=== PATIENT | female | born 1945 | race African-American/Black ===

== ENCOUNTER 2019-09-26 05:15 | Observation (INO) | payer MEDICARE ==
--- NOTE | 2019-09-22 14:16 | Diagnostic Imaging Report ---
EXAMINATION: CHEST 2 VIEWS INDICATION: Pre-operative COMPARISON: None FINDINGS: LINES/TUBES:None LUNGS:The lungs are well-inflated. No focal consolidation or pulmonary edema. PLEURA:No pleural effusion or pneumothorax. MEDIASTINUM:The cardiomediastinal silhouette appears normal in size and shape. Atherosclerotic calcifications of the thoracic aorta. BONES/SOFT TISSUES:No acute osseous injury. ABDOMEN:No free air under the diaphragm. IMPRESSION: No focal pneumonia or pulmonary edema. Signed by: Emmanuel Bernal MD on 09/22/2019 2:13 PM
[~2019-09-26] VITALS: Ht 172.7 cm; Wt 93.4 kg
[~2019-09-26 05:15] MED LIST: ADVIL200 MG PO; LASIX20 MG PO; LEVOTHYROXINE88 MCG PO; POTASSIUM CHLO10 ME1 PO
--- OUTSIDE RECORDS SUMMARY | 2019-09-26 05:22 | XMS REPORT ---
Author Author [facility] Address Unknown Phone Unavailable Care Team Providers Care Construction Controller Name Role Phone FAN OCAMPO Unavailable Unavailable Problems This patient has no known problems. Allergies, Adverse Reactions, Alerts This patient has no known allergies or adverse reactions. Medications This patient has no known medications. Results Test Description Test Time Test Comments Text Results Atomic Results Result Comments CHEST 2 VIEWS 2019-09-22 14:11:00 [facility] [address] [address] Patient Name: ALISON VILLAR MR #: [id number] : 1945 Age/Sex: 73/F Req #: [id number] Adm Physician: Ordered by: FAN OCAMPO MD Report #: [id number] Location: OR Room/Bed: Procedure: [id number] DX/CHEST 2 VIEWS Exam Date: 09/22/19 Exam Time: 1400 REPORT STATUS: Signed EXAMINATION: CHEST 2 VIEWS INDICATION: Pre-operative COMPARISON: None FINDINGS: LINES/TUBES:None LUNGS:The lungs are well-inflated. No focal consolidation or pulmonary edema. PLEURA:No pleural effusion or pneumothorax. MEDIASTINUM:The cardiomediastinal silhouette appears normal in size and shape. Atherosclerotic calcifications of the thoracic aorta. BONES/SOFT TISSUES:No acute osseous injury. ABDOMEN:No free air under the diaphragm. IMPRESSION: No focal pneumonia or pulmonary edema. Signed by: Melvin Bernal MD on 09/22/2019 2:13 PM Dictated By: MELVIN BERNAL MD [id number] Transcribed By: CHAY on 09/22/19 1413 COPY TO: FAN OCAMPO MD
[2019-09-26] MEDS ORDERED: VANCOMYCIN 1GM/NS 250 ML 250 ML ONE (05:39)
[2019-09-26] MEDS ORDERED: DEXAMETHASONE SOD PHOS 10 MG/1 ML VIAL ONE (05:39)
[2019-09-26] MEDS ORDERED: CELECOXIB 200 MG CAP ONE (05:39)
[2019-09-26] MEDS ORDERED: GABAPENTIN 300 MG CAP ONE (05:39)
[2019-09-26] MEDS ORDERED: SODIUM CHLORIDE 0.9% 500ML 500 ML ONE (06:14)
[2019-09-26] MEDS ORDERED: VANCOMYCIN HCL 1,000 MG ONE (06:14)
[2019-09-26] MEDS ORDERED: BACITRACIN 50,000 UNIT VIAL ONE (06:15)
[2019-09-26] MEDS ORDERED: TRANEXAMIC ACID 1,000 MG/10 ML ML ONE (06:15)
[2019-09-26] MEDS ORDERED: ROPIVACAINE 246.25 MG, EPINEPHRINE HCL 1:1000 1ML 0.5 MG, CLONIDINE HCL 0.08 MG, KETORO... INJ ONE ×5 (07:30)
[2019-09-26] MEDS ORDERED: HYDROCODONE/APAP 5MG-325MG TAB PO PRN (08:15)
[2019-09-26] MEDS ORDERED: DIPHENHYDRAMINE HCL INJ 50 MG/ML VIAL IM/IV PRN (08:15)
[2019-09-26] MEDS ORDERED: DOCUSATE SODIUM 100 MG CAP PO PRN (08:15)
[2019-09-26] MEDS ORDERED: ACETAMINOPHEN 650 MG SUPP PR PRN (08:15)
[2019-09-26] MEDS ORDERED: PROMETHAZINE HCL (IM) 25 MG/ML VIAL IM PRN (08:15)
[2019-09-26] MEDS ORDERED: KETOROLAC TROMETHAMINE 30 MG/ML VIAL IV PRN (08:15)
[2019-09-26] MEDS ORDERED: ONDANSETRON HCL INJ 2MG/ML 2ML 2 MG/ML VIAL IV PRN (08:15)
[2019-09-26] MEDS: ASPIRIN 325 MG TAB PO SCH ×2 (09:00→17:38)
[2019-09-26] MEDS ORDERED: CELECOXIB 100 MG CAP PO SCH (09:00)
--- NOTE | 2019-09-26 09:12 | Diagnostic Imaging Report ---
EXAMINATION: KNEE LEFT 1-2 VIEWS INDICATION: Postoperative COMPARISON: None FINDINGS: Portable AP and lateral radiographs of the left knee demonstrate immediate postoperative findings of left total knee replacement. Alignment is anatomic. No unexpected fracture. Postoperative subcutaneous soft tissue emphysema. Surgical skin radha in place. Small joint effusion. IMPRESSION: Anatomic alignment status post left total knee replacement. Signed by: Emmanuel Bernal MD on 09/26/2019 9:09 AM
[2019-09-26] MEDS ORDERED: MIDAZOLAM HCL 2 MG/2 ML VIAL ONE (09:18)
[2019-09-26] MEDS ORDERED: FENTANYL CITRATE/PF 100MCG/2 ML INJ ONE (09:18)
[2019-09-26] MEDS ORDERED: HYDROMORPHONE 1MG/1ML INJ ONE (09:53)
[2019-09-26] MEDS ORDERED: KETOROLAC TROMETHAMINE 30 MG/ML VIAL ONE (10:18)
--- NOTE | 2019-09-26 13:09 | NUR ---
REPORT RECEIVED FROM ADITI IN PACU AWAITING FOR PT TO ARRIVE TO FLOOR
[2019-09-26 13:20] VITALS: BP 124/68
--- NOTE | 2019-09-26 13:20 | NUR ---
RECEIVED PT TO FLOOR [id number] PT HAD LEFT TOTAL KNEE . LEFT LEG COVERED WITH YAMILETH. BELOW YAMILETH , ADITI RN REPORTED DRESSING TO LEFT KNEE AND LEFT FOOT DRESSING (STITCHES IN PLACE FROM CUT ) YAMILETH IS DRY AND INTACT FOOT PUMPS PRESENT RIGHT COMPRESSION STOCKINGS PRESENT IV TO THE RIGHT HAND 20 PATENT DRY AND INTACT FAMILY IS AT BEDSIDE WILL CONTINUE TO MONITOR PT CLOSELY, SIDE RAILSX2, BED WHEELS LOCKED CALL LIGHT IS WITHIN EASY REACH, INSTRUCTED TO CALL FOR ASSISTANCE IF NEEDED
--- NOTE | 2019-09-26 13:25 | NUR ---
PT VOIDED INTO BEDPAN
[2019-09-26] MEDS: ACETAMINOPHEN 1000 MG/100 ML IV SCH ×2 (13:51→19:30)
[2019-09-26] MEDS ORDERED: ROPIVACAINE 0.5% 5 MG/ML 30 ML SDV ONE (13:51)
[2019-09-26] MEDS: SODIUM CHLORIDE 0.9% 1000ML 1,000 ML IV SCH ×2 (13:51→18:05)
[2019-09-26] MEDS: HYDROCODONE/APAP 7.5MG-325MG 1 EA TAB PO PRN (14:55)
[2019-09-26 16:37] VITALS: BP 106/65
[2019-09-26] MEDS: VANCOMYCIN 1GM/NS 250 ML 250 ML IV SCH (17:38)
[2019-09-26] MEDS: CELECOXIB 200 MG CAP PO SCH (17:38)
[2019-09-26] MEDS ORDERED: PROPOFOL IV EMULSION 10 MG/ML 20 ML VIAL ONE (18:35)
[2019-09-26] MEDS ORDERED: ONDANSETRON HCL INJ 2MG/ML 2ML 2 MG/ML VIAL ONE (18:35)
[2019-09-26] MEDS ORDERED: SEVOFLURANE INHAL SOLN 250 ML PEN BTL ONE (18:35)
[2019-09-26] MEDS ORDERED: ACETAMINOPHEN 1000 MG/100 ML IV ONE (18:35)
[2019-09-26] MEDS ORDERED: PHENYLEPHRINE HCL 1% 10 MG/ML VIAL ONE (18:35)
[2019-09-26] MEDS ORDERED: LIDOCAINE HCL 2% LOCAL INJ 5 ML SDV VIAL INJ ONE (18:35)
--- NOTE | 2019-09-26 19:05 | NUR ---
Received patient awake on bed, no complaints at this time, CPM machine on,attached to patient, no complaints of pain at this time. Call light within easy reach, advised to call for assistance anytime, will continue to monitor closely
[2019-09-26 20:01] VITALS: BP 98/54
[2019-09-26 21:00] VITALS: BP 98/54
[2019-09-26] MEDS ORDERED: ZOLPIDEM TARTRATE 5 MG TAB PO PRN (21:00)
[2019-09-27] MEDS: ACETAMINOPHEN 1000 MG/100 ML IV SCH ×2 (00:20→06:20)
[2019-09-27 00:29] VITALS: BP 101/59
[2019-09-27] MEDS: SODIUM CHLORIDE 0.9% 1000ML 1,000 ML IV SCH (04:05)
[2019-09-27 04:39] VITALS: BP 106/57
[2019-09-27 06:45] LABS: HEMATOCRIT 34.6 % (34.2-44.1); HEMOGLOBIN 10.6 g/dL (12.0-16.0)
[2019-09-27] MEDS: VANCOMYCIN 1GM/NS 250 ML 250 ML IV SCH (07:12)
--- NOTE | 2019-09-27 07:14 | NUR ---
pt alert resp even and unlabored no distress noted pt able to make needs known , no c/o pain when asked, call light in reach.
--- NOTE | 2019-09-27 07:14 | NUR ---
walking rounds done, patient is in good condition
[2019-09-27] MEDS: CELECOXIB 200 MG CAP PO SCH (08:07)
[2019-09-27] MEDS: HYDROCODONE/APAP 7.5MG-325MG 1 EA TAB PO PRN ×2 (08:07→13:18)
[2019-09-27] MEDS: ASPIRIN 325 MG TAB PO SCH (08:07)
[2019-09-27] MEDS ORDERED: ACETAMINOPHEN 1000 MG/100 ML IV PRN (08:15)
[2019-09-27 08:33] VITALS: BP 127/74
[2019-09-27 08:38] VITALS: BP 127/74
--- NOTE | 2019-09-27 09:10 | NUR ---
pt working with PT, tolerating well.
--- NOTE | 2019-09-27 09:14 | NUR ---
DR ROSSI OFFICE PREARRANGED FOLLOWING DISCHARGE PLAN OF: RETURN HOME TO [address] [place] [phone] [facility] WITH [facility] CONFIRMED WITH [facility] [phone] DME 3 IN ONE COMMODE. AND CPM. PROVIDED BY [facility] [employer] [facility] [phone] AZEEM TO BE DELIVERED TO HOME, I WILL PROVIDED WALKER OBTAIN ALL SIGNATURES AND FILE GREEN SHEET WITH ORDER AND FACE SHEET IN PACU FOR PROCESSING
--- NOTE | 2019-09-27 11:05 | Consultation ---
DATE OF CONSULTATION: REASON FOR CONSULTATION: Postop medical management. HISTORY OF PRESENT ILLNESS: The patient is a 73-year-old lady, status post left total knee arthroplasty, who is doing well postoperatively with minimal pain. Denies any fever, chills, nausea, vomiting, headache, shortness of breath, or dizziness. PAST MEDICAL HISTORY: Significant for hypothyroidism. MEDICATIONS: See MAR. ALLERGIES: PENICILLIN. SOCIAL HISTORY: Nonsmoker. Nondrinker. Retired. FAMILY HISTORY: Noncontributory at this time. PHYSICAL EXAMINATION: VITAL SIGNS: Temperature 96.8, pulse 69, blood pressure 101/59, and saturations 96% on room air. GENERAL: No apparent distress, lying in bed. NECK: Supple. LUNGS: Clear to auscultation bilaterally. CARDIOVASCULAR: Regular rate and rhythm. ABDOMEN: Good bowel sounds. Soft and nontender. EXTREMITIES: No clubbing or cyanosis. NEUROLOGIC: Nonfocal. ASSESSMENT AND PLAN: 1. Left knee pain, status post arthroplasty. Continue postoperative care and pain control and physical therapy. 2. Anemia. Check CBC. 3. Hypothyroidism. Continue with her home medication at discharge. Please see also chart for full details. MD CARLOS Brand/LORAINE /[id number]
[2019-09-27 11:47] VITALS: BP 111/63
--- NOTE | 2019-09-27 12:21 | Operative Report ---
DATE OF PROCEDURE: 09/26/2019 SURGEON: Ernesto Moore MD LINEN ROOM SUPERVISOR: Mino Lantigua, certified PA. PREOPERATIVE DIAGNOSIS: Osteoarthritis of left knee. POSTOPERATIVE DIAGNOSIS: Osteoarthritis of left knee. PROCEDURE: Left total knee arthroplasty. INDICATIONS: The patient is a 73-year-old lady, who has end-stage arthritis of her left knee. She has failed conservative management and would now like to proceed with a left total knee replacement. The risks and benefits of the procedure have been discussed. The implants, hospital stay, and recovery has all been discussed. All of her questions have been answered. She states she understands and wishes to proceed. PROCEDURE IN DETAIL: The patient was brought to the operating room and placed under general anesthetic. She received prophylactic antibiotics, a regional block and tranexamic acid in the holding area. Her left lower extremity was prepped and draped in a sterile manner. A preoperative time-out was performed. The extremity was exsanguinated and a proximal tourniquet was inflated to 300 mmHg. She was noted to have a valgus deformity that could be passively corrected. An anterior incision with a medial parapatellar arthrotomy was performed. Clear synovial fluid was removed from the joint. Soft tissue releases were performed to bring the knee up into flexion with the patella everted. Complete loss of articular cartilage primarily involving the lateral compartment was noted. Meniscal remnants and marginal osteophytes were removed. The cruciate ligaments were sacrificed. A [employer] posterior stabilized knee system was used throughout the case. An extramedullary cutting guide was used to resect the proximal tibia. The tibial base plate was a size #5. The central fin punch was impacted and attention was directed towards the distal femur. An intramedullary cutting guide was used to resect the distal femur in 6 degrees of valgus and rotation, referencing off a combination of landmarks including Whitesides line, the epicondylar axis and the posterior condyles. The femoral component was also a size #5. The anterior, posterior, and notch cuts were made. A trial reduction was performed. I found that an 11 mm posterior stabilized tibial insert provided appropriate soft tissue balancing in full extension and 90 degrees of flexion. The patella was resurfaced with a 32 mm x 9 mm patellar button. The thickness was checked before and after resurfacing and was noted to be 24 mm each time. Patellar tracking was concentric. The trial implants were all removed. The knee was thoroughly irrigated with a shower tip pulsatile lavage. A 100 mL premixed pericapsular ABA injection was placed into the surrounding soft tissue. The wound was further irrigated. The components were then cemented into place using a single mix of Palacos cement, preloaded with antibiotics. Care was taken to remove extravasated cement. The wound was further irrigated while the cement cured. Additionally, all bone cuts had been irrigated with a spray mixture of diluted polymyxin and vancomycin spray. The arthrotomy was then closed with interrupted #1 Ethibond. The knee was put through flexion and extension to ensure that the closure was secure. The skin was closed with subcuticular Vicryl and radha. A sterile Aquacel bandage was applied. The tourniquet was deflated. While taking down the dressing, the dorsum of her foot was lacerated with scissors and, apparently, tore further as the bandages were removed; this was inspected and felt to necessitate placement of three nylon stitches. A sterile bandage was applied there was well. I went to the holding area and explained the findings to the patient and their family. We notified risk management regarding the incident. All of the patient's family's questions were answered. Otherwise, there was no blood loss or complication. The patient was transported to the recovery room in stable condition. Ernesto Moore MD DR/LORAINE /[id number] SHILO
[2019-09-27] MEDS ORDERED: ASPIR 8181 MG PO (12:59)
--- NOTE | 2019-09-27 13:42 | NUR ---
pt discharged home, resp even and unlabored no s/s of distress noted ,pt was given information on her diagnoses, pt and family members were educated on medications, pt iv was removed no swelling no redness to site.
== END 2019-09-27 13:35 | disposition home health service (06) ==
LOC: OR 05:15 → PACU V 08:07 → MED/SURG 13:15
PROVIDERS: ADMIT Specialist; ATTEND Specialist
DX: M17.12 Unilateral primary osteoarthritis, left knee (principal); Z88.0 Allergy status to penicillin; Z01.812 Encounter for preprocedural laboratory examination; Z01.811 Encounter for preprocedural respiratory examination; E03.9 Hypothyroidism, unspecified; K57.92 Diverticulitis of intestine, part unspecified, without perforation or abscess without bleeding; E78.5 Hyperlipidemia, unspecified; D64.9 Anemia, unspecified
CPT/HCPCS: 27447; 36415; 71046; 73560; 85014; 85018; 86850; 86870; 86880; 86900; 86905; 86920; 86922; 97110; 97116 ×2; 97161; 97530; 99001; C1713 ×3; G0378 ×2; J0131 ×2; J0171; J1100; J1170; J1885; J2001; J2250; J2370; J2405; J2704; J2795; J3010; J3370 ×3; J7030; J7040